=== PATIENT | male | born 1990 | race Caucasian/White ===

== ENCOUNTER 2021-08-07 12:47 | Outpatient (CLI) | payer BC ==
--- NOTE | 2021-08-07 14:34 | XRAY Report ---
PROCEDURE: Shoulder 2 View RT INDICATIONS: PAIN IN RIGHT SHOULDER TECHNIQUE: 3 views of the shoulder were acquired. COMPARISON: None. FINDINGS: Bones: There is widening of the acromioclavicular joint with superior displacement of the distal clav icle relative to the acromion by slightly greater than one shaft width (approximately 1.5 cm). The co racoclavicular distance is 2.5 cm. Findings are most consistent with a Dale type III acromioclavi cular separation injury. No acute osseous fracture is seen. No suspicious bony lesions. Visualized r ibs appear intact. Soft tissues: No suspicious soft tissue calcifications. IMPRESSION: Type III acromioclavicular separation injury. Reviewed by: Mark Jordan MD on 08/07/2021 2:33 PM PDT Approved by: Mark Jordan MD on 08/07/2021 2:33 PM PDT Station ID: [id number]
--- NOTE | 2021-08-07 16:44 | XRAY Report ---
PROCEDURE: Ribs w/PA Chest RT INDICATIONS: CONTUSION OF RIGHT FRONT WALL OF THORAX TECHNIQUE: 3 views of the right ribs were acquired, along with a single view chest. COMPARISON: None FINDINGS: Surgical changes and devices: None. Bones and chest wall: No fractures or dislocations. No suspicious bony lesions. Overlying soft tis sues appear unremarkable. Lungs and pleura: No pleural effusions or pneumothorax. Lungs appear clear. Mediastinum: Mediastinal contours appear normal. Heart size is normal. IMPRESSION: No visualized acute fracture or dislocation. However, occult injury cannot be excluded. Recommend collin rt interval imaging follow-up in 7-10 days as clinically indicated for additional evaluation. Reviewed by: Renee Iverson MD on 08/07/2021 4:42 PM PDT Approved by: Renee Iverson MD on 08/07/2021 4:42 PM PDT Station ID: [id number]
== END 2021-08-07 12:48 | disposition home or self-care (01) ==
LOC: DI 12:47
PROVIDERS: ATTEND Registered Nurse
DX: S20.211A Contusion of right front wall of thorax, initial encounter (principal); S43.101A Unspecified dislocation of right acromioclavicular joint, initial encounter